=== PATIENT | male | born 1965 | race Two or more races ===

== ENCOUNTER 2019-11-11 12:39 | Outpatient (CLI) | payer BC, SELFPAY ==
[2019-11-12 01:34] LABS: SARS-CoV-2 RNA PCR Negative
== END 2019-11-11 12:40 | disposition home or self-care (01) ==
PROVIDERS: Internal Medicine; PCP Internal Medicine; Visit Provider Internal Medicine
DX: Z20.828 Contact with and (suspected) exposure to other viral communicable diseases (principal)
CPT/HCPCS: 87635; C9803; U0003

== ENCOUNTER 2019-12-23 13:46 | Outpatient (CLI) | payer BC, SELFPAY ==
--- NOTE | ~2019-12-23 | XR_ITS ---
EXAMINATION: XR foot LT min 3V DATE: 12/23/2019 14:10 INDICATION: Left foot pain. TECHNIQUE: 4 views of left foot were obtained. COMPARISON: None. FINDINGS: There is a nondisplaced oblique intra-articular fracture of base of fifth metatarsal. There is a chip of bone dorsal to navicular. 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 IMPRESSION: 1. Nondisplaced oblique intra-articular fracture of base of fifth metatarsal. 2. Chip of bone dorsal to navicular, which may be an acute avulsion fracture or a chronic finding. Reviewed, dictated and finalized at location B. PHONE STERILIZER
--- NOTE | ~2019-12-23 | XR_ITS ---
EXAMINATION: XR ankle LT min 3V DATE: 12/23/2019 14:10 INDICATION: Left ankle injury. TECHNIQUE: 4 views of left ankle were obtained. COMPARISON: None. FINDINGS: Bone alignment is normal. There is a chip of bone dorsal to navicular. There is a nondispla kelton oblique intra-articular fracture of base of fifth metatarsal. Joint spaces are well maintained. IMPRESSION: 1. Nondisplaced oblique intra-articular fracture of base of fifth metatarsal. 2. Chip of bone dorsal to navicular, which may be an acute avulsion fracture or a chronic finding. Reviewed, dictated and finalized at location B. IC CUTTER
== END 2019-12-23 13:47 | disposition home or self-care (01) ==
PROVIDERS: PCP Internal Medicine; Visit Provider Internal Medicine
DX: S99.922A Unspecified injury of left foot, initial encounter (principal); S99.912A Unspecified injury of left ankle, initial encounter
CPT/HCPCS: 73610; 73630

== ENCOUNTER 2020-01-27 14:05 | Outpatient (CLI) | payer BC, SELFPAY ==
--- NOTE | ~2020-01-27 | XR_ITS ---
XR foot LT min 3V DATE: 01/27/2020 14:34 INDICATION: Fifth metatarsal fracture follow up TECHNIQUE: 4 views COMPARISON: 12/23/2019 left foot FINDINGS: There is no significant change in position or alignment at the linear oblique intra-articul ar fracture of the lateral base of the fifth metatarsal bone since 12/23/2019. Little new bone format ion is evident. No other fracture or dislocation. IMPRESSION: Linear oblique intra-articular fracture of the lateral base of the fifth metatarsal, with out interval change in position or alignment or other significant change since 12/23/2019 Reviewed, dictated and finalized at location B. RER MACHINE IMPRESSION: Linear oblique intra-articular fracture of the lateral base of the fifth metatarsal, without interval change in position or alignment or other sig nificant change since 12/23/2019
== END 2020-01-27 14:06 | disposition home or self-care (01) ==
LOC: CHSIMG 14:07
PROVIDERS: PCP Internal Medicine; Visit Provider Internal Medicine
DX: S92.355D Nondisplaced fracture of fifth metatarsal bone, left foot, subsequent encounter for fracture with routine healing (principal)
CPT/HCPCS: 73630

== ENCOUNTER 2020-09-29 17:15 | Outpatient (CLI) | payer BC, SELFPAY ==
[2020-09-29 18:24] LABS: SARS-CoV-2 Ag Negative (Negative)
== END 2020-09-29 17:16 | disposition home or self-care (01) ==
PROVIDERS: PCP Internal Medicine; Visit Provider Internal Medicine
DX: Z20.822 Contact with and (suspected) exposure to COVID-19 (principal)
CPT/HCPCS: 87426; C9803